=== PATIENT | male | born 1950 | race Caucasian/White ===

== ENCOUNTER 2019-08-17 19:22 | Inpatient (IN) | payer MEDICARE, OTHER, SELFPAY ==
[2019-08-17] VITALS (20 sets, daily range): BP systolic 119–167; BP diastolic 65–88; PULSE 85–107; RESP 12–32; TEMP 37.1; O2SAT 89–99; BMI 36.2
--- NOTE | 2019-08-17 19:27 | XR_ITS ---
WS: [id number] PORTABLE CHEST HISTORY: cp COMPARISON: None available. Pacer pads are present over the chest. Lung volumes are decreased. No consolidation or nodules. No pleural effusion or pneumothorax. Cardiac size: Normal. Mediastinum/Aorta: Normal mediastinum. No osseous abnormality seen. XR/XR chest 1V portable [id number] IMPRESSION: Decreased lung volumes. No acute findings.
--- NOTE | 2019-08-17 19:27 | ECG_ITS ---
Measurements Intervals [place] Rate: 100 P: 31 [place]: 243 QRS: -17 QRSD: 105 T: -15 QT: 342 QTc: 441 SINUS TACHYCARDIA WITH FIRST DEGREE AV BLOCK INCOMPLETE RIGHT BUNDLE BRANCH BLOCK [90+ ms QRS DURATION, TERMINAL R IN V1/ 40+ ms S IN I/aVL/V4/V5/V6] MODERATE VOLTAGE CRITERIA FOR LVH, CONSIDER NORMAL VARIANT [MEETS CRITERIA IN ONE OF: R(aVL), S(V1), R(V5), R(V5/V6)+S(V1)] INFERIOR MYOCARDIAL INFARCTION , OF INDETERMINATE AGE [40+ ms Q WAVE AND/OR ST/T ABN ABNORMALITY IN II/aVF] ANTEROLATERAL MYOCARDIAL INFARCTION , OF INDETERMINATE AGE [40+ ms Q WAVE IN I/ I/aVL/V3-V6] No previous ECG available for comparison Electronically Signed On 08-18-2019 13:04:18 CDT by Gerald Arriaga M.D. [id number]
--- NOTE | 2019-08-17 19:28 | ED_ITS ---
HPI - Syncope General: Chief Complaint: Syncope Stated Complaint: syncope Time Seen by Provider: 08/17/19 19:26 Source: patient and EMS Mode of arrival: EMS Limitations: no limitations History of Present Illness: HPI narrative: 69-year-old male who had a syncopal event at home. EMS arrived and has had 3-4 more syncopal events over the last 45 minutes. History sounds like he is having sinus pauses as EMS states that he gets bradycardic and then has a period of asystole that lasted 5 to 10 seconds and that is when he passes out. Patient denies any pain currently. He states he has had no pain MD complaint: loss of consciousness Onset (ago): hour(s) -: second(s) Prodromal symptoms: none Associated symptoms: Deny abdominal pain, fever(s), headache(s) or nausea Review of Systems Const: Denies: fever(s), chills, body aches or change in appetite Eyes: Denies: blurry vision or eye discomfort ENMT: Denies: throat pain or dental pain Card: Reports: irregular heart rhythm and syncope Resp: Denies: dyspnea GI: Denies: abdominal pain, nausea, vomiting or diarrhea : Denies: dysuria Musc: Denies: neck pain or back pain Skin/Breast: Denies: rash Neuro: Denies: headache(s) Psych: Denies: depression Alberto/Lymph: Denies: easy bruising All/Imm: Denies: urticaria PFSH ED PFSH: Social History Smoking and tobacco status: former smoker Physical Exam Const: COMMON NORMALS: no acute distress, patient oriented x3 and healthy appearing HENMT: COMMON NORMALS: normocephalic and atraumatic HEAD & SCALP: normocephalic and atraumatic Eye: COMMON NORMALS: Equal, round and reactive pupils present and EOMs intact bilaterally PUPIL: Yes Equal, round and reactive pupils present Neck/C-Spine: COMMON NORMALS: full ROM and supple Chest: COMMONS NORMALS: normal inspection of the chest and normal palpation of entire chest wall Resp: COMMON NORMALS: normal respiratory effort, No retractions, No use of accessory muscles and clear to auscultation bilaterally AUSCULTATION: clear to auscultation bilaterally Cardio: COMMON NORMALS: regular rate, regular rhythm and No murmurs present (Cardio) RATE: regular rate RHYTHM: regular rhythm GI: COMMON NORMALS: Normal to inspection, nondistended, normoactive bowel sounds present, Soft to palpation, non-tender and no masses PALPATION: Yes Soft to palpation Extremity: COMMON NORMALS: normal to inspection and full ROM Neuro: COMMON NORMALS: patient oriented x3, moves all extremities and no focal motor deficits Psych: COMMON NORMALS: mental status grossly normal, Normal thought process present and cooperative THOUGHT PROCESS: Normal thought process present Skin: COMMON NORMALS: no rashes or lesions noted and no wounds GENERAL SKIN EXAM: no rashes or lesions noted Course Vital Signs: Vital signs: Vital Signs Pulse Rate 96 08/17/19 21:52 Respiratory Rate 16 08/17/19 21:52 Blood Pressure 136/88 08/17/19 21:52 Pulse Oximetry 98 08/17/19 21:52 MDM - Syncope MDM Narrative: Medical decision making narrative: Patient presents here with syncopal events from a sinus pause. Patient has had 2 episodes here where he has a sinus pause for 20 to 30 seconds. I spoke to Dr. Arriaga who is going to place temporary pacemaker in the patient and will then admit to the ICU. Patient has been otherwise stable down here. Lab Data: Labs: Lab Results 08/17/19 08/17/19 08/17/19 Range/Units 19:35 19:35 19:35 WBC 12.4 H (4.0-10.0) 10^3/ uL RBC 5.25 (4.1-5.3) 10^6/u L Hgb 16.2 (11.7-16.6) g/dL Hct 49.3 (42.0-52.0) % MCV 93.9 (80-94) fL MCH 30.9 (28.0-34.0) pg MCHC 32.9 (30.0-36.0) g/dL RDW 12.2 (12.1-15.1) % Plt Count 183 (130-400) 10^3/c mm MPV 10.9 H (7.4-10.4) fL Neut % (Auto) 68.2 % Lymph % (Auto) 23.8 % Stark % (Auto) 6.0 % Eos % (Auto) 0.8 % Baso % (Auto) 0.6 % Neut # (Auto) 8.5 H (1.8-7.7) 10^3/u L Lymph # (Auto) 3.0 (0.8-4.8) 10^3/u L Stark # (Auto) 0.7 (0.2-0.9) 10^3/u L Eos # (Auto) 0.1 (0.0-0.8) 10^3/u L Baso # (Auto) 0.1 (0.0-0.1) 10^3/u L Nucleated RBC % (a uto) 0 % Nucleated RBCs # 0.0 /100WBC Sodium 139 (136-145) mmol/L Potassium 4.1 (3.5-5.1) mmol/L Chloride 99 (98-107) mmol/L Carbon Dioxide 23 (22-29) mmol/L Anion Gap 21.1 H (5-19) BUN 13 (8-23) mg/dL Creatinine 1.2 (0.7-1.2) mg/dL Glucose 161 H (65-115) mg/dL Calculated Osmolal ity 288 (285-295) mOsm/k g Calcium 10.2 (8.5-10.5) mg/dL Magnesium 2.1 (1.7-2.3) mg/dL Total Bilirubin 0.5 (0.15-1.2) mg/dL AST 22 (0-40) U/L ALT 20 (0-41) U/L Alkaline Phosphata se 75 (40-130) IU/L Troponin T Baselin e 27 H (0-15) ng/mL Total Protein 7.8 (6.6-8.7) g/dL Albumin 4.5 (3.5-5.2) g/dL Globulin 3.3 (1.3-4.6) g/dL Lipase 21 (13-60) U/L Critical Care Time Critical Care Time: Critical Care Time: Yes Total Critical Care Time: 36 Attestation: This case had a high probability of a clinically significant, sudden, or life threatening deterioration of this patient's condition which required my full and direct attention, intervention and personal management. Discharge Plan Discharge Patient Disposition: Admitted As Inpatient Clinical Impression: Sinus pause Syncope Qualifiers: Syncope type: unspecified Qualified Code(s): R55 - Syncope and collapse Condition: Stable Discharge Orders: Transfer Out of Facility (Order); Ordered 08/17/19 Ordered By: Sharif Conte Referrals: Sami Stevens MD [Primary Care Provider] - Interventions: ED Discharge Assessment Last Done: 08/17/19 21:52 ED Charges Last Done: 08/17/19 21:52 Coding Level of Care Code ED Medical Billing Specialist for Chg Fwd Exam Comprehensive
[2019-08-17] MEDS: sodium chloride 0.9% 1,000 ML 999 ML IV (19:40)
[2019-08-17] MEDS: ondansetron 2 mg/ML SDV 2 mL 4 MG IVP (19:41)
[2019-08-17 19:56] LABS: Basophils # 0.1 10^3/uL (0.0-0.1); Basophils % 0.6 %; Eosinophils # 0.1 10^3/uL (0.0-0.8); Eosinophils % 0.8 %; Hematocrit 49.3 % (42.0-52.0); Hemoglobin 16.2 g/dL (11.7-16.6); Lymphocytes % 23.8 %; Mean Corpuscular HGB Conc 32.9 g/dL (30.0-36.0); Mean Corpuscular Hemoglobin 30.9 pg (28.0-34.0); Mean Corpuscular Volume 93.9 fL (80-94); Mean Platelet Volume 10.9 fL (7.4-10.4); Monocytes # 0.7 10^3/uL (0.2-0.9); Neutrophils # 8.5 10^3/uL (1.8-7.7); Neutrophils % 68.2 %; Nucleated Red Blood Cells % 0 %; Platelet Count 183 10^3/cmm (130-400); Red Blood Count 5.25 10^6/uL (4.1-5.3); Red Cell Distribution Width 12.2 % (12.1-15.1); White Blood Count 12.4 10^3/uL (4.0-10.0)
[2019-08-17 20:07] LABS: Alanine Aminotransferase 20 U/L (0-41); Albumin Level 4.5 g/dL (3.5-5.2); Alkaline Phosphatase 75 IU/L (40-130); Anion Gap 21.1 (5-19); Aspartate Amino Transferase 22 U/L (0-40); Blood Urea Nitrogen 13 mg/dL (8-23); Calcium 10.2 mg/dL (8.5-10.5); Carbon Dioxide 23 mmol/L (22-29); Chloride 99 mmol/L (98-107); Globulin 3.3 g/dL (1.3-4.6); Glucose 161 mg/dL (65-115); Lipase 21 U/L (13-60); Magnesium 2.1 mg/dL (1.7-2.3); Osmolality Calculated 288 mOsm/kg (285-295); Potassium 4.1 mmol/L (3.5-5.1); Sodium 139 mmol/L (136-145); Total Bilirubin 0.5 mg/dL (0.15-1.2); Total Protein 7.8 g/dL (6.6-8.7)
[2019-08-17 20:09] LABS: Troponin(5th) Baseline 27 ng/mL (0-15)
--- NOTE | 2019-08-17 21:27 | ECG_ITS ---
Measurements Intervals [place] Rate: 92 P: 29 [place]: 241 QRS: -9 QRSD: 102 T: -3 QT: 348 QTc: 431 SINUS RHYTHM WITH FIRST DEGREE AV BLOCK INCOMPLETE RIGHT BUNDLE BRANCH BLOCK [90+ ms QRS DURATION, TERMINAL R IN V1/V2, 40+ ms S IN I/aVL/V4/V5/V6] POSSIBLE ANTERIOR MYOCARDIAL INFARCTION , PROBABLY OLD [30 ms Q WAVE IN V3/V4, OR R < 0.2 mV IN V4] INFERIOR MYOCARDIAL INFARCTION , OF INDETERMINATE AGE [40+ ms Q WAVE AND/OR ST/T ABNORMALITY IN II/aVF] No previous ECG available for comparison Electronically Signed On 08-18-2019 13:07:27 CDT by Gerald Arriaga M.D. [id number]
--- NOTE | 2019-08-17 21:54 | XACV_ITS ---
Ht: 180 cm Wt: 118 kg BSA: 2.47 m2 Gender: Male : 1950 Exam Priority: Routine Procedure(s): Procedure Description: Diagnostic procedure Procedure Description: Miscellaneous Procedure Description: Temporary Pacemaker Insertion Diagnostic Cath Status: Emergency Diagnostic Findings Patient came to the emergency room with syncope. Having 30 to 45 seconds of ventricular standstill with loss of consciousness. Patient underwent temporary transvenous pacemaker placement via the right common femoral vein without incident. Backup rate set at 70 with an MA of 5. Interventional RX Recommendation: other cardiac therapy w/o CABG/PCI Diagnostic RX Recommendation: other cardiac therapy w/o CABG/PCI Clinical Evaluation EBL: 5mL-10mL Procedural Details Procedure Consent Obtained. Pre-Procedure Time Out. Identified patient by full name and date of as verbalized by the patient/guarantor. Does the consent match the physician's order: Yes. Accurate & Complete Informed Consent: Yes. Inpatient/Outpatient History & Physical on Chart: Yes. If H&P is completed, is and addenduem needed: Yes; If yes, is the addendum complete: N/A. Visualize and Verify Site with Patient/Guarantor: N/A. Relevant Radiology Images available: N/A. The risks, benefits, and alternatives of sedation and/or procedure were discussed by physician. The patient agrees to continue. Procedure started. Correct patient, site and procedure confirmed by cath team. PERRLA. Strong, equal hand insurance consultant bilaterally. Lungs clear x 5 lobes. IV Site on Arrival: 20 gauge in the left anticubital. A 20 gauge IV was started in the left anticubital using aseptic technique. Oxygen started at 2liters/min via nasal canula. Physician notified. Baseline sample Acquired. HR: 95 BPM. Patient's family unavailable. Equipment: 6F - Femoral. Physician arrived. Physician scrubbed in. Immediate Pre-Procedure Time Out. Correct Patient: Yes; Correct Procedure: Yes; Correct Site: Yes; Correct Patient Position: Yes; Correct Supplies: Yes; Dried Flammable Prep: Yes; Blood Products Available: Yes;. bilateral groins was prepped with chloroprep then draped in the usual sterile fashion. Lidocaine 1% infiltrated to the right groin. Venous access obtained. Temporary pacer inserted. settings done. temporary sutured in and sterile dressing applied per physician protocol. Post Procedure: Pulses reassessed and unchanged. No VTE prophylaxis required. Total IV fluids: 50 mL. Fluoro: 13:07. Post-op diagnosis: EKG pauses. Complications: none. Estimated blood loss: 5mL-10mL. Procedure completed. Patient transferred by bed to ICU. Site: Right Femoral vein Sheath Size: 6 Fr Hemostasis Success: Unsuccessful I, the attending physician, have reviewed and verified all procedure medications. Yes, all medications given per verbal order Report Signatures Finalized by:Dr. Gerald Arriaga MD on 08/17/2019 10:36:05 PM
--- NOTE | 2019-08-17 21:55 | PC.NURSE ---
EKG done at 2152 and shown to ER doctor
[2019-08-17 22:16] LABS: Troponin 5 2HR 29.75 ng/mL (0-15); Troponin 5 2HR Delta 2.75 ABS# (0-10)
--- NOTE | 2019-08-17 22:29 | PM.HP ---
Providers/Chief Complaint Admitting Physician: Corina Primary Care Provider: Sami Stevens MD Chief Complaint: syncope History of Present Illness Bolivar Lau is a 69 year old male who is a poor historian. He passed out at the dinner table this evening. He has had several episodes since. Came to the emergency room where he is having 30 to 45 seconds circular standstill with loss of consciousness. He denies any previous cardiac history. He does not know much about his medical history stating that he has high blood pressure. Does not know what medications he takes. Review of Systems General: Reports: ROS unobtainable due to medical condition Medications/Allergies Home Medications Medication Instructions Recorded Confirmed Last Taken Type amlodipine 10 mg PO DAILY 08/17/19 08/17/19 08/17/19 History ferrous sulfate See Rx Instructions .ROUTE .COMPLEX 08/17/19 08/17/19 08/17/19 History hydralazine See Rx Instructions .ROUTE .COMPLEX 08/17/19 08/17/19 08/17/19 History lisinopril 10 mg PO DAILY 08/17/19 08/17/19 08/17/19 History Allergies Allergy/AdvReac Type Severity Reaction Status Date / Time No Known Allergies Allergy Verified 08/17/19 19:31 PFSH Acute PFSH: Medical History (Updated 08/17/19 @ 22:31 by Gerald Arriaga MD) Essential hypertension Obesity Sleep apnea Social History Smoking and tobacco status: former smoker Vitals/I&O/Wt Last Vital Signs Pulse 96 08/17/19 21:52 Resp 16 08/17/19 21:52 BP 136/88 08/17/19 21:52 Pulse Ox 98 08/17/19 21:52 Weight last 48 hrs Weight 260 lb Physical Exam Narrative: EXAM NARRATIVE: GENERAL: In general obese, dirty and disheveled HEENT: Exam within normal limits. NECK: Supple without jugular vein distention. The carotid upstroke is normal without bruits. BACK: Exam normal. LUNGS: Clear. HEART: Regular rate and rhythm. ABDOMEN: Benign without organomegaly or tenderness. EXTREMITIES: No edema. NEUROLOGIC: Exam normal. SKIN: Unremarkable. Data : 08/17/19 19:35 08/17/19 19:35 A&P Assessment and plan (1) Sinus pause: Status: Acute (2) Syncope: Status: Acute Qualifiers: Syncope type: unspecified Qualified Code(s): R55 - Syncope and collapse (3) Essential hypertension: Status: Acute (4) Obesity: Status: Acute (5) Sleep apnea: Status: Acute Additional A&P Information Patient needs a temporary pacemaker. He is symptomatic with the episodes of ventricular standstill. These last up to 45 seconds and he becomes unconscious. Pacemaker will be performed now. He will then need a permanent pacemaker. Attestations Medical Necessity Statement*: Patient will need to stay in the hospital past 2 midnights for management of ventricular standstill. Coding Level of Care Code New Pt Acute Dye House Supervisor for Chg Fwd Patient Type New History Comprehensive Exam Comprehensive Medical Decision Making High Complexity Diagnoses Sinus pause I45.5 Syncope R55 Syncope type: unspecified Essential hypertension I10 Obesity E66.9 Sleep apnea G47.30
--- NOTE | 2019-08-17 23:22 | XACV_ITS ---
Ht: 180 cm Wt: 118 kg BSA: 2.47 m2 Gender: Male : 1950 Exam Priority: Routine Procedure(s): Procedure Description: Diagnostic procedure Procedure Description: Miscellaneous Procedure Description: Temporary Pacemaker Insertion Diagnostic Cath Status: Emergency Diagnostic Findings Temporary pacemaker was placed 2 hours ago for ventricular standstill and loss of consciousness. Shortly after arriving at the ICU the patient had another episode. The pacemaker clearly had dislodged. The nurses then did CPR on the patient further dislodging the device. He is brought back for purposes of repositioning. The old pacemaker was removed and a new wire placed. We will take him back to the ICU with the pacemaker in the asynchronous mode at a rate of 110 so as to ensure that it is still functioning when he gets in bed in the ICU. Settings are the same however now the rate is 110 bpm and the asynchronous mode with an MA of 5. Conclusions Repositioning of a dislodged temporary pacemaker wire. Interventional RX Recommendation: other cardiac therapy w/o CABG/PCI Diagnostic RX Recommendation: other cardiac therapy w/o CABG/PCI Procedural Details Procedure Consent Obtained. Pre-Procedure Time Out. Identified patient by full name and date of as verbalized by the patient/guarantor. Does the consent match the physician's order: Yes. Accurate & Complete Informed Consent: Yes. Inpatient/Outpatient History & Physical on Chart: Yes. If H&P is completed, is and addenduem needed: Yes; If yes, is the addendum complete: Yes. Visualize and Verify Site with Patient/Guarantor: N/A. Relevant Radiology Images available: N/A. The risks, benefits, and alternatives of sedation and/or procedure were discussed by physician. The patient agrees to continue. Procedure started. Correct patient, site and procedure confirmed by cath team. PERRLA. Strong, equal hand custodial manager bilaterally. Lungs clear x 5 lobes. IV Site on Arrival: 20 gauge in the left anticubital. Oxygen started at 2liters/min via nasal canula. Physician notified. Baseline sample Acquired. HR: 0 BPM. Patient's family unavailable. Equipment: 6F - Femoral. Physician arrived. Physician scrubbed in. Immediate Pre-Procedure Time Out. Correct Patient: Yes; Correct Procedure: Yes; Correct Site: Yes; Correct Patient Position: Yes; Correct Supplies: Yes; Dried Flammable Prep: Yes; Blood Products Available: Yes;. physician confirming temp pacer generator settings. physician repositioning pacer lead. old lead out new lead inserted. generator attached. lead sutured in and sterile dressing applied. Fluoro: 10:00. Complications: none. Procedure completed. Patient transferred by bed to ICU. I, the attending physician, have reviewed and verified all procedure medications. No Report Signatures Finalized by:Dr. Gerald Arriaga MD on 08/18/2019 12:03:18 AM
--- NOTE | 2019-08-17 23:32 | PM.EVENT ---
Event Note Event Note: Shortly after arriving to the ICU after the temporary pacemaker was placed, patient apparently had another episode of ventricular standstill and syncope. The ICU nurses performed CPR. Obviously somehow the pacemaker became dislodged then did not function. The CPR probably dislodged it permanently. We will need to take him back to the catheterization laboratory and reposition the pacemaker.
[2019-08-18] VITALS (37 sets, daily range): BP systolic 106–194; BP diastolic 59–114; PULSE 68–101; RESP 11–24; O2SAT 84–99
--- NOTE | 2019-08-18 01:17 | PC.NURSE ---
received patient from microbiology lab technician via bed at 2256. patient awake alert and oriented x 4. patient has temporary pacer in right groin and is taped from groin to ankle. pacer set at 70 . . after getting monitor hooked up to patient and assessing , at 2303 patients eyes rolled back into head cardiac went asystole with deep purple tinge to face. patient asystole for 25 seconds and pacer failed to fire 6 pushes of CPR on chest patient regained rhythm. Patient knows where he is but does not know what happened. Dr. Arriaga called and told of patients pacer not firing, microbiology lab technician on way back in to return to microbiology lab technician, nursing rig supervisor called. (Mckenzie Muniz), At 2330 patient taken bath to microbiology lab technician per microbiology lab technician staff. patient returned to floor at 0010, Dr. Arriaga at bedside.patient awake alert and oriented hr 100 vs wnl
--- NOTE | 2019-08-18 01:27 | ECG_ITS ---
Measurements Intervals [place] Rate: 100 P: 99 [place]: 247 QRS: -13 QRSD: 106 T: -11 QT: 336 QTc: 434 SINUS TACHYCARDIA WITH FIRST DEGREE AV BLOCK POSSIBLE ANTERIOR MYOCARDIAL INFARCTION [30 ms Q WAVE IN V3/V4, OR R < 0.2 mV IN V4], OF INDETERMINATE AGE INFERIOR MYOCARDIAL INFARCTION [40+ ms Q WAVE AND/OR ST/T ABNORMALITY IN II/aVF II/aVF], OF OF INDETERMINATE AGE INTERPRETATION BASED ON A DEFAULT AGE OF 40 YEARS No previous ECG available for comparison Electronically Signed On 08-18-2019 13:08:44 CDT by Gerald Arriaga M.D. [id number]
[2019-08-18 01:31] LABS: Troponin 5 6HR 34.55 ng/mL (0-15); Troponin 5 6HR Delta 7.55 ng/L (0-12)
--- NOTE | 2019-08-18 02:00 | PC.NURSE ---
patient voided per urinal right leg remains straight with 6 khmer cath intact. patient has talked to on phone and no pain at this time. No ectopy or pauses noted. 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 Also to inform us that patient had aneurism somewhere in head ..
--- NOTE | 2019-08-18 02:08 | PC.NURSE ---
Spoke with Dr. Schrader re: Lovenox has been ordered for patient, with recent brain bleed in april, Dr. Schrader wanted to hold lovenox for now. records have been requested from [facility].
[2019-08-18 05:57] LABS: Anion Gap 17.4 (5-19); Blood Urea Nitrogen 14 mg/dL (8-23); Calcium 9.3 mg/dL (8.5-10.5); Carbon Dioxide 26 mmol/L (22-29); Chloride 102 mmol/L (98-107); Glucose 120 mg/dL (65-115); Osmolality Calculated 289 mOsm/kg (285-295); Potassium 4.4 mmol/L (3.5-5.1); Sodium 141 mmol/L (136-145)
[2019-08-18 06:02] LABS: Basophils % 0.3 %; Hematocrit 46.6 % (42.0-52.0); Hemoglobin 15.2 g/dL (11.7-16.6); Lymphocytes # 1.8 10^3/uL (0.8-4.8); Lymphocytes % 14.2 %; Mean Corpuscular HGB Conc 32.6 g/dL (30.0-36.0); Mean Corpuscular Hemoglobin 29.5 pg (28.0-34.0); Mean Corpuscular Volume 90.5 fL (80-94); Monocytes # 0.8 10^3/uL (0.2-0.9); Monocytes % 6.7 %; Neutrophils # 9.8 10^3/uL (1.8-7.7); Neutrophils % 78.6 %; Nucleated Red Blood Cells % 0 %; Platelet Count 196 10^3/cmm (130-400); Red Blood Count 5.15 10^6/uL (4.1-5.3); White Blood Count 12.5 10^3/uL (4.0-10.0)
--- NOTE | 2019-08-18 07:00 | P.PN_ITS ---
Subjective Subjective: Interval history: Pacemaker had to be replaced last night because it became dislodged. He has had no further problems overnight. He maintained sinus rhythm this morning. The nurse told me that his called in and said that he had had some kind of brain bleed in the past. I do not have any of the details regarding this. She also mentioned an aneurysm in the head. Apparently the patient suffers from some memory loss as a result of this. When I asked him about this this morning he does not have any recollection about it at all. Glucoses have been mildly elevated. His baseline troponin was 27 with 2-hour troponin 29.75 and 6-hour troponin 34.5 Medications: Reviewed: Yes Vitals/I&O/Wt Last Vital Signs Temp 98.8 F 08/17/19 23:00 Pulse 100 08/18/19 00:30 Resp 14 08/18/19 00:30 BP 130/80 08/18/19 00:30 Pulse Ox 93 08/18/19 01:12 08/17/19 08/18/19 08/18/19 22:59 06:59 14:59 Intake Total 120 / 120 Output Total 850 / 850 Balance -730 / -730 Weight last 48 hrs Weight 260 lb Physical Exam Narrative: EXAM NARRATIVE: GENERAL: General he looks comfortable HEENT: Exam within normal limits. NECK: Supple without jugular vein distention. The carotid upstroke is normal without bruits. BACK: Exam normal. LUNGS: Clear. HEART: Regular rate and rhythm. ABDOMEN: Benign without organomegaly or tenderness. EXTREMITIES: No edema. NEUROLOGIC: Exam normal. SKIN: Unremarkable. Data : 08/18/19 04:45 08/18/19 04:45 A&P Assessment and plan (1) Sleep apnea: Status: Acute (2) Obesity: Status: Acute (3) Essential hypertension: Status: Acute (4) Sinus pause: Status: Acute (5) Syncope: Status: Acute Qualifiers: Syncope type: unspecified Qualified Code(s): R55 - Syncope and collapse (6) Glucose intolerance: Status: Acute Attestations 2 Medical Necessity Statement*: Needs continued hospitalization for management of ventricular standstill with syncope and loss of consciousness. Coding Level of Care Code Established Pt Acute Planning Official for [facility] Fwd Patient Type Established History Comprehensive Exam Comprehensive Medical Decision Making High Complexity Diagnoses Sleep apnea G47.30 Obesity E66.9 Essential hypertension I10 Sinus pause I45.5 Syncope R55 Syncope type: unspecified Glucose intolerance E74.39
--- NOTE | 2019-08-18 07:08 | USCV_ITS ---
Bolivar Lau Age: 69 Gender: M : 1950 Exam Date: 08/18/2019 07:56 Ordering Phys: Gerald Arriaga MD ([email or web address]) Technologist: Gladis Marques Exam Location: [facility] [place] Indication: Ventricular standstill BP: 124 / 93 HR: 99 Rhythm: Sinus Technical Quality: Technically difficult study MEASUREMENTS (Male / Female) Normal Values 2D ECHO LV Diastolic Diameter PLAX 3.4 cm 4.2 - 5.9 / 3.9 - 5.3 cm LV Systolic Diameter PLAX 2.1 cm LV Chamber Size 3.8 cm IVS Diastolic Thickness 1.0 cm 0.6 - 1.0 / 0.6 - 0.9 cm IVS Systolic Thickness 1.7 cm LVPW Diastolic Thickness 0.9 cm 0.6 - 1.0 / 0.6 - 0.9 cm LVPW Systolic Thickness 1.6 cm RV Chamber Size 2.6 cm LVOT Diameter 2.0 cm LV Ejection Fraction 2D Teich 68.8 % LV Ejection Fraction MOD 2C 56.0 % LV Ejection Fraction 2C AL 58.2 % LA Diameter 5.7 cm LA Width 3.1 cm LA Height 4.0 cm RA Width 5.0 cm RA Height 2.9 cm Aorta at Sinotubular Diameter 3.1 cm M-MODE LV Diastolic Diameter MM 5.5 cm 4.2 - 5.9 / 3.9 - 5.3 cm LV Systolic Diameter MM 3.0 cm LV Ejection Fraction MM Teich 76.8 % IVS Diastolic Thickness MM 0.9 cm 0.6 - 1.0 / 0.6 - 0.9 cm IVS Systolic Thickness MM 1.4 cm LVPW Diastolic Thickness MM 1.3 cm 0.6 - 1.0 / 0.6 - 0.9 cm LVPW Systolic Thickness MM 1.6 cm RV Diastolic Diameter MM 1.6 cm Aortic Annulus Diameter 3.4 cm LA Ao Ratio MM 1.7 MV E Point Septal Separation 0.7 cm DOPPLER AV Peak Velocity 182.0 cm/s LVOT Peak Velocity 129.0 cm/s AV Area Cont Eq vti 2.4 cm squared AV Area Cont Eq pk 2.2 cm squared MV Area PHT 4.9 cm squared MV E' Velocity 11.0 cm/s Mitral E to MV E' Ratio 9.2 Mitral E to LV E' Lateral Ratio 10.5 Mitral E to LV E' Septal Ratio 8.2 TR Peak Velocity 160.3 cm/s TR Peak Gradient 10.3 mmHg TR Mean Velocity 107.8 cm/s TR Mean Gradient 5.6 mmHg TR Velocity Time Integral 32.8 cm TV Peak E Velocity 83.0 cm/s Right Atrial Pressure 3.0 mmHg Pulmonary Artery Systolic Pressu 13.3 mmHg FINDINGS Left Ventricle Normal left ventricular size, systolic function and wall thickness, with no regional wall motion abnormalities. Grade II/IV diastolic dysfunction, moderately elevated filling pressures. Ejection fraction is approximately 60%. Right Ventricle Normal right ventricular size and systolic function. Normal right ventricular systolic pressure. Right Atrium Mildly increased right atrial size. Left Atrium Mildly increased left atrial size. Mitral Valve Structurally normal mitral valve without significant stenosis or prolapse. There is no mitral regurgitation. Aortic Valve Structurally normal aortic valve without significant sclerosis or stenosis. There is no aortic regurgitation. Tricuspid Valve Structurally normal tricuspid valve. Trace tricuspid valve regurgitation. Pulmonic Valve Pulmonic valve not well visualized. Pericardium Normal pericardium without effusion. Aorta Normal ascending aorta dimension. CONCLUSIONS Normal left ventricular size, systolic function and wall thickness, with no regional wall motion abnormalities. Grade II/IV diastolic dysfunction, moderately elevated filling pressures. Ejection fraction is approximately 60%. Mildly increased right atrial size. Mildly increased left atrial size. There are no prior echocardiogram studies to compare. Dr. Gerald Arriaga MD (Electronically Signed) Final Date: 18 Aug 2019 09:31 S
[2019-08-18] MEDS: amlodipine 10 mg Tablet PO (09:05)
--- NOTE | 2019-08-18 09:16 | P.CONIM_ITS ---
Providers/Reason For Consult Consulting Physican/Specialty*: MELANIE Kothari MD/cardiology Reason for Consult*: For a permanent pacemaker implantation Attending Physician: Gerald Arriaga MD Primary Care Provider: Sami Stevens MD History of Present Illness History of Present Illness Bolivar Lau is a 69 year old male with a history of hypertension,? Dyslipidemia, is admitted to the hospital with recurrent episodes of syncope. He was found to have prolonged pauses on telemetry. He had a temporary pacemaker insertion. I was consulted for the permanent pacemaker implantation. Patient apparently has been in his baseline state of health up until last night when while having the dinner, had a passing out spell. He was brought to the hospital by ambulance. On the way to the hospital, he had couple more episodes of passing out spells in the ambulance. He was found to have prolonged pauses of more than 10 seconds. He had a temporary pacemaker insertion at the time of admission. While being in the ICU, the temporary pacer was found to be nonfunctioning. Patient had another episode of prolonged pause of almost 40 seconds. He had a brief CPR. The temporary pacer wire was repositioned. Currently seems to be doing okay. His telemetry shows sinus rhythm. He is on demand pacing. Denies any chest pain or shortness of breath. No fever, chills or cough. No recent infections. He has a history of intracerebral bleed for which he was admitted to [facility] in [place]. Details are not available. He has no history for any bleeding diathesis. Review of Systems Narrative: CONSTITUTIONAL: No fever or chills. EYES: No blurring of vision or other visual disturbances lately. ENT: No hoarseness of voice, auditory disturbances or sore throat. CARDIOVASCULAR: As mentioned above. RESPIRATORY: No significant cough. GASTROINTESTINAL: No hematemesis or melena. GENITOURINARY: No dysuria or hematuria. INTEGUMENTARY: No skin rashes or history of skin cancer. NEURO:? History of cerebral bleed PSYCHIATRIC: No history of psychosis or major depression. HEMATOLOGIC: No bleeding disorders or significant anemia. ENDOCRINE: No history of polyuria or polydipsia. MUSCULOSKELETAL: No recent joint pain or swelling. ALLERGY/IMMUNOLOGY: As mentioned above. Meds/Allergies Home Medications and Allergies Home Medications Medication Instructions Recorded Confirmed Last Taken Type amlodipine 10 mg PO DAILY 08/17/19 08/17/1920 History ferrous sulfate See Rx Instructions .ROUTE .COMPLEX 08/17/19 08/17/19 08/17/19 History hydralazine See Rx Instructions .ROUTE .COMPLEX 08/17/19 08/17/19 08/17/19 History lisinopril 10 mg PO DAILY 08/17/19 08/17/19 08/17/19 History Allergies Allergy/AdvReac Type Severity Reaction Status Date / Time No Known Allergies Allergy Verified 08/17/19 19:31 Current Medications Current Medications Generic Name Dose Route Start Last Admin Trade Name Freq PRN Reason Stop Dose Admin Amlodipine Besylate 10 mg 08/18/19 09:00 08/18/19 09:05 Norvasc PO 10 mg DAILY TREVIN Administration Enoxaparin Sodium 40 mg 08/18/19 00:22 08/18/19 05:32 Lovenox SUBCUT Not Given Q24H TREVIN PFSH Acute PFSH: Medical History (Updated 08/18/19 @ 09:32 by Tyler Kothari MD) Benign essential hypertension with target blood pressure below 140/90 Brain bleed Essential hypertension Glucose intolerance Obesity Recurrent syncope Sinus node dysfunction Sleep apnea Social History Smoking and tobacco status: former smoker Vitals/I&O/Wt Last Vital Signs Temp 98.8 F 08/17/19 23:00 Pulse 96 08/18/19 09:08 Resp 14 08/18/19 00:30 BP 130/80 08/18/19 00:30 Pulse Ox 93 08/18/19 09:08 08/17/19 08/18/19 08/18/19 22:59 06:59 14:59 Intake Total 120 / 120 Output Total 850 / 850 Balance -730 / -730 Weight last 48 hrs Weight 260 lb Physical Exam Narrative: EXAM NARRATIVE: GENERAL: The patient is alert and oriented times three. Not in any acute distress. HEENT: No significant pallor, icterus or lymphadenopathy. NECK: Trachea appears to be central. No masses noted. No JVD or thyromegaly appreciated. No carotid bruit. RESPIRATORY: Chest is symmetrical. No intercostals muscle retraction or any accessory muscle activation. There is no chest wall tenderness. Breath sounds are heard bilaterally. No rales or rhonchi heard. No evidence of any consolidation. BREASTS: Deferred. HEART: The PMI is in the 5th left intercostals space just inside the midclavicular line. No palpable precordial events. S1 and S2 are normal. No S3 or S4 heard. No pericardial rub or any click heard. ABDOMEN: No vessel pulsations or distention. No tenderness. No organomegaly appreciated. No abdominal bruit. Bowel sounds are normally heard. : Deferred. RECTAL: Deferred. LYMPHATIC: No lymphadenopathy noted in the neck or groin. EXTREMITIES: No edema or cyanosis. No clubbing. The pulses are symmetrical bilaterally. MUSCULOSKELETAL: No acute joint deformities or swelling SKIN: There are no significant scars or skin rash noted. NEUROPSYCHIATRIC: The patient is alert and oriented x3. Appears to be in a good mood. The higher functions are grossly within normal limits except for poor recollection of past events. No tremors or rigidity noted. Data Labs: Other Labs: Abnormal lab results 08/17/19 08/17/19 08/17/19 Range/Units 19:35 19:35 19:35 WBC 12.4 H (4.0-10.0) 10^3/ uL RDW (12.1-15.1) % MPV 10.9 H (7.4-10.4) fL Neut # (Auto) 8.5 H (1.8-7.7) 10^3/u L Anion Gap 21.1 H (5-19) Glucose 161 H (65-115) mg/dL Troponin I 6 Hour (0-15) ng/mL Troponin T Baselin e 27 H (0-15) ng/mL Troponin T 120 Min [place] (0-15) ng/mL 08/17/19 08/18/19 08/18/19 Range/Units 21:30 01:13 04:45 WBC 12.5 H (4.0-10.0) 10^3/ uL RDW 12.0 L (12.1-15.1) % MPV 11.0 H (7.4-10.4) fL Neut # (Auto) 9.8 H (1.8-7.7) 10^3/u L Anion Gap (5-19) Glucose (65-115) mg/dL Troponin I 6 Hour 34.55 H (0-15) ng/mL Troponin T Baselin e (0-15) ng/mL Troponin T 120 Min [place] 29.75 H (0-15) ng/mL 05/15/20 Range/Units 04:45 WBC (4.0-10.0) 10^3/ uL RDW (12.1-15.1) % MPV (7.4-10.4) fL Neut # (Auto) (1.8-7.7) 10^3/u L Anion Gap (5-19) Glucose 120 H (65-115) mg/dL Troponin I 6 Hour (0-15) ng/mL Troponin T Baselin e (0-15) ng/mL Troponin T 120 Min [place] (0-15) ng/mL Imaging^: CXR: My impression: Normal cardiac silhouette. No acute lung infiltrates. Echo: My impression: Normal LV size and ejection fraction. No gross wall motion abnormalities. No significant pericardial effusion. No significant valvular lesions. Mild biatrial enlargement EKG^: EKG 1: My Interpretation: The EKG showed a sinus rhythm with the first-degree AV block. Features of old anterior wall myocardial infarction. Possible old inferior myocardial infarction. No acute ST-T changes. A&P Assessment and plan (1) Recurrent syncope: Patient syncope was found to be associated with prolonged pauses. I agree with a permanent pacer implantation, for further management of his condition. As of now the patient has no contraindication. He has a slightly elevated white cell count, which could be related to the recurrent episodes of passing out spell/acute reactant. He has no evidence of infection. He is afebrile. I may repeat his CBC. Will do a UA. Also will do an INR. After reviewing the above, further decisions will be made. Status: Acute (2) Sinus node dysfunction: As mentioned above. Patient seems to have severe sinus prudencio dysfunction causing prolonged pauses. The echocardiogram was reviewed. No significant as stenotic or regurgitant lesions. Status: Acute (3) Benign essential hypertension with target blood pressure below 140/90: Currently the blood pressure is stage II Status: Acute Additional A&P Information I discussed with the patient detail about the permanent pacer implantation.The risk of bleeding, hematoma, vascular injury, pneumothorax, infection, renal failure and other concomitant complications were explained in detail. The patient understood this well and consented to proceed. We will go ahead and make the arrangements to have it done as soon as possible. Consult Attestations Medical Necessity Statement: Patient requires continued hospital stay for close monitoring and further management Coding Level of Care Code Acute Systems Integration Advisor for Chg Fwd Diagnoses Recurrent syncope R55 Sinus node dysfunction I49.5 Benign essential hypertension with target blood pressure below 140/90 I10
[2019-08-18 10:51] LABS: Basophils % 0.3 %; Hematocrit 45.8 % (42.0-52.0); Hemoglobin 15.3 g/dL (11.7-16.6); Lymphocytes # 2.1 10^3/uL (0.8-4.8); Lymphocytes % 19.7 %; Mean Corpuscular HGB Conc 33.4 g/dL (30.0-36.0); Mean Corpuscular Hemoglobin 29.9 pg (28.0-34.0); Mean Corpuscular Volume 89.6 fL (80-94); Mean Platelet Volume 10.5 fL (7.4-10.4); Monocytes # 0.8 10^3/uL (0.2-0.9); Neutrophils # 7.9 10^3/uL (1.8-7.7); Neutrophils % 72.7 %; Nucleated Red Blood Cells % 0 %; Platelet Count 174 10^3/cmm (130-400); Red Blood Count 5.11 10^6/uL (4.1-5.3); White Blood Count 10.8 10^3/uL (4.0-10.0)
--- NOTE | 2019-08-18 11:23 | W.PM.OPSUD ---
Surgery/Procedure H&P Update DATE OF PROCEDURE: August 18, 2019 DATE H&P PERFORMED: 08/18/19 PATIENT REASSESSED PRIOR TO SEDATION, WITH NO CHANGE NOTED: Yes PHYSICAL EXAM: alert, oriented x 3, clear to auscultation bilaterally and regular rate & rhythm AIRWAY EVAL/ANESTHESIA PLAN: ASA II, Monitored Anesthesia, Local Anesthesia, Risks, benefits & alternatives of sedation and/or procedure discussed and Patient agrees to continue as planned
--- NOTE | 2019-08-18 11:36 | PM.OP ---
Operative Report Date of procedure: August 18, 2019 Pre-op Diagnosis: Syncope/sinus node dysfunction Post-op diagnosis: same Procedure: LOCATION: [facility]ulatory [facility] PREOPERATIVE DIAGNOSES: Syncope/sinus node dysfunction. POSTOPERATIVE DIAGNOSES: Same. COMPLICATIONS: None. ESTIMATED BLOOD LOSS: Around 5 milliliters. BRIEF HISTORY: This is a 69-year-old white male, is admitted to hospital with recurrent episodes of syncope. He was found to have prolonged pauses on the telemetry. He had asystole of more than 40 seconds, requiring brief CPR. He had a temporary pacer insertion of the time of admission. For further management of his condition, a permanent pacemaker implantation was requested . A dual chamber permanent pacemaker implantation was recommended for further management of her condition. The procedure was explained to the patient in detail with the risks and benefits. The risks of bleeding, hematoma, vascular injury, infection, pneumothorax, myocardial perforation and other concomitant complications were explained in detail, which the patient understood well and consented to proceed. PROCEDURE DESCRIPTION: The patient was brought to the Cardiac Catheterization Lab. The left and the right side of the neck and the subclavian area were cleaned and draped in a sterile fashion. 1% Xylocaine was used as the local anesthetic agent. A left subclavian venous access was obtained using a micropuncture needle system. Under venographic guidance, the patient was injected with 20 milliliters of Omnipaque through the left antecubital vein. A two-inch long incision was made 2.0 centimeters below the midclavicular region. By sharp and blunt dissection, a pacemaker pocket was made. A second venous access was obtained using another micropuncture needle system. Over the first guidewire, a 7-German venous sheath with dilator was advanced. The venous dilator and the guidewire were taken out. A screw-in ventricular lead was advanced through the venous sheath and was positioned towards the right ventricle. Under fluoroscopy guidance, the ventricular lead was positioned toward the right ventricular apex. Good pacing and sensing thresholds were obtained. The lead was secured to the endocardium by advancing the helix. The stability of the lead was tested by gentle twisting movements and also by asking the patient to take some deep breaths and cough. The venous sheath was peeled off, at this time. The lead was secured to the pectoralis fascia, by suturing with 1-0 Surgilon. Over the second guidewire, another 7-German venous sheath with dilator was advanced. The dilator and the guidewire were taken out. Under fluoroscopy guidance, an atrial lead (Medtronic), was advanced and positioned toward the right atrium. The lead was positioned in the right atrial appendage. Good pacing and sensing thresholds were obtained. The lead was secured to the endocardium by advancing the helix. Stability of the lead was tested by gentle twisting movements and also by asking the patient to take some deep breaths and cough. The venous sheath was peeled off, at this time. The lead was secured to the pectoralis fascia by suturing with 0-Surgilon. The pacemaker pocket was copiously irrigated with vancomycin solution. Complete hemostasis was achieved. Sponge counts were confirmed. The leads were attached to a Medtronic generator. The leads were positioned behind the generator and the generator was attached to the pectoralis fascia by suturing with 0-Surgilon. The pocket was closed in layers. Skin was approximated using 4-0 Vicryl. IMPLANTED DEVICES: ATRIAL LEAD: Model number: [id number] Serial number: [id number] Make: Medtronic VENTRICULAR LEAD: Model number: 50 76?58 Serial number: [id number] Make: Medtronic GENERATOR Brand: Anamika XT DR MRI Miriaman Model number: [id number] Serial number: [id number] Make: Medtronic IMPLANTATION DATA: With the pacing system analyzer, the R wave sensing was 7.4 millivolts with a lead impedance of 730 and a pacing threshold was 0.4 volts at 0.5 milliseconds. In the atrium, the sensing was 3.0 millivolts with a lead impedance of 632 ohms and a pacing threshold was 0.5 volts at 0.5 milliseconds. Through the device, the R-wave sensing was 10.0 millivolts with a lead impedance of 684 and a pacing threshold was 0.5 volts at 0.4 milliseconds. The atrial sensing was 2.2 millivolts with a lead impedance of 551 ohms and a pacing threshold of 0.5 volts at 0.4 milliseconds. The pacemaker was set for AAIR/DDDR mode with upper rate of 130 and a lower rate of 60. A pressure dressing was applied over the pacemaker site. The patient was transferred to the Medical Floor in stable condition. A chest x-ray was ordered to confirm the lead position and also to rule out any pneumothorax.
--- NOTE | 2019-08-18 15:32 | XRR_ITS ---
PROCEDURE INFORMATION: Exam: XR Chest, 1 View Exam date and time: 08/18/2019 3:46 PM Age: 69 years old Clinical indication: Screening exam; Pre-operative exam; Other: Pacemaker lead placement; Prior surgery; Surgery date: Post-operative (0-2 days); Surgery type: Pacemaker placement; Additional info: Verify lead placement of pacemaker TECHNIQUE: Imaging protocol: XR of the chest Views: 1 view. COMPARISON: CR XR chest 1V portable [id number] 08/17/2019 7:30 PM FINDINGS: Tubes, catheters and devices: Interval placement of dual lead pacemaker in the left chest wall. Leads are within the right atrium and right ventricle on this single frontal view. Lungs: No consolidation. Pleural space: No pneumothorax. Heart/Mediastinum: Heart size is at the upper limits of normal. Diaphragm: The right hemidiaphragm remains mildly elevated. Bones/joints: Unremarkable. XR/XR chest 1V portable [id number] IMPRESSION: 1. Interval placement of dual lead pacemaker with leads in right atrium and right ventricle. 2. No acute findings.
[2019-08-19] VITALS (12 sets, daily range): BP systolic 108–145; BP diastolic 67–95; PULSE 61–91; RESP 15–23; TEMP 36.7–36.9; O2SAT 89–94
[2019-08-19] MEDS: enoxaparin 40 mg/0.4 mL Syringe SUBCUT (01:25)
[2019-08-19] MEDS: sodium chloride 0.9% 1,000 ML 75 ML IV (05:24)
--- NOTE | 2019-08-19 06:00 | ECG_ITS ---
Measurements Intervals [place] Rate: 83 P: 26 DE: 238 QRS: -21 QRSD: 117 T: 3 QT: 380 QTc: 448 SINUS RHYTHM WITH FIRST DEGREE AV BLOCK BORDERLINE LEFT AXIS DEVIATION INCOMPLETE RIGHT BUNDLE BRANCH BLOCK INFERIOR MYOCARDIAL INFARCTION, PROBABLY OLD MINIMAL VOLTAGE CRITERIA FOR LVH, CONSIDER NORMAL VARIANT Compared to ECG 08/18/2019 01:40:55 Incomplete right bundle-branch block now present Sinus tachycardia no longer present Myocardial infarct finding no longer present Electronically Signed On 08-20-2019 9:51:48 CDT by Lorna Velazquez M.D. [email or web address]
[2019-08-19] MEDS: amlodipine 10 mg Tablet PO (08:28)
--- NOTE | 2019-08-19 10:16 | P.DS_ITS ---
Discharge Providers Date of Admission: 08/18/19 00:09 Date of Discharge: August 19, 2019 Attending Provider at Admission: Gerald Arriaga MD Attending Provider at Discharge: Lorna Velazquez MD Primary Care Provider: Sami Stevens MD Diagnoses at Discharge Discharge Diagnosis (1) Recurrent syncope: Status: Acute Problem details: Recurrent syncope with prolonged pauses. Patient underwent successful placement of Medtronic dual-chamber permanent pacemaker placement. -Normal device function on interrogation. -Follow-up with Ms. Amy Noe in 1 week for site check and device interrogation. -Follow-up with Dr. Kothari/ in 8 weeks (2) Sinus node dysfunction: Status: Acute Other Information Additional DC diagnoses/information: Hypertension Obesity Obstructive sleep apnea History of intracranial hemorrhage Former smoker Reason for Visit Reason for Visit: Reason For Visit: syncope Hospital Course Hospital Course: Bolivar Lau is a 69 year old male with a history of hypertension, dyslipidemia who was admitted to the hospital with recurrent episodes of syncope. Patient apparently has been in his baseline state of health up until last night when while having the dinner, had a passing out spell. He was brought to the hospital by ambulance. On the way to the hospital, he had couple more episodes of passing out spells in the ambulance. He was found to have prolonged pauses of more than 10 seconds. He had a temporary pacemaker insertion at the time of admission. While in ICU, the temporary pacer was found to be nonfunctioning. Patient had another episode of prolonged pause of almost 40 seconds. He had a brief CPR. The temporary pacer wire was repositioned. Discharge Summary: Dr. Kothari was consulted and patient underwent Medtronic dual-chamber pacemaker placement successfully. Postprocedure chest x-ray did not show any pneumothorax thorax and normal atrial and ventricular lead position. This morning patient denies having any complaints. No events on telemetry. Demand pacing noted Physical Exam Const: COMMON NORMALS: no acute distress, patient oriented x3, healthy appearing, alert and well nourished HENMT: COMMON NORMALS: normocephalic, atraumatic and external ears normal HEAD & SCALP: normocephalic and atraumatic EXTERNAL EAR: Yes external ears normal Neck/C-Spine: COMMON NORMALS: no JVD Chest: COMMONS NORMALS: normal inspection of the chest (Left upper chest pacemaker in situ; dressing in place. No bruising or hematoma) Resp: COMMON NORMALS: normal respiratory effort and clear to auscultation bilaterally AUSCULTATION: clear to auscultation bilaterally, no crackles, no rales, no rhonchi and no wheezes Cardio: COMMON NORMALS: no JVD, regular rate, regular rhythm, S1 normal heart sound present and S2 normal heart sound present RATE: regular rate RHYTHM: regular rhythm HEART SOUNDS: S1 normal heart sound present, S2 normal heart sound present, no gallops, no murmurs and no rubs Extremity: COMMON NORMALS: normal to inspection and no clubbing, cyanosis or edema Neuro: COMMON NORMALS: patient oriented x3 SENSORIUM/ORIENTATION: Yes alert Discharge Data Data Completed and Pending: Completed Studies During Hospitalization Category Date Time Status WIND INSTRUMENT REPAIRER request for service Routin e Exams 08/17/19 21:54 Completed WIND INSTRUMENT REPAIRER request for service Routin e Exams 08/17/19 23:22 Completed WIND INSTRUMENT REPAIRER request for service Routin e Exams 08/18/19 11:23 Completed XR chest 1V sobeida ble [id number] Stat Exams 08/17/19 19:27 Completed XR chest 1V sobeida ble [id number] Urgent Exams 08/18/19 15:32 Completed CV echo complete* [id number] Routine Ultrasound 08/18/19 07:08 Completed Pending at discharge Category Date Time Status Urinalysis Routin e Lab 08/18/19 10:17 Ordered Labs from last 24 hours 08/18/19 08/18/19 10:35 10:35 WBC 10.8 H RBC 5.11 Hgb 15.3 Hct 45.8 MCV 89.6 MCH 29.9 MCHC 33.4 RDW 12.0 L Plt Count 174 MPV 10.5 H Neut % (Auto) 72.7 Lymph % (Auto) 19.7 [place] % (Auto) 7.0 Eos % (Auto) 0.0 Baso % (Auto) 0.3 Neut # (Auto) 7.9 H Lymph # (Auto) 2.1 [place] # (Auto) 0.8 Eos # (Auto) 0.0 Baso # (Auto) 0.0 Nucleated RBC % (a uto) 0 Nucleated RBCs # 0.0 PT 13.50 H INR 1.00 Imaging^: Echo: Radiologist's impression: TTE (18 Aug 2019) CONCLUSIONS Normal left ventricular size, systolic function and wall thickness, with no regional wall motion abnormalities. Grade II/IV diastolic dysfunction, moderately elevated filling pressures. Ejection fraction is approximately 60%. Mildly increased right atrial size. Mildly increased left atrial size. There are no prior echocardiogram studies to compare. Procedures Performed: Dual chamber PPM placement Vitals: Last Vital Signs Temp 98.8 F 08/17/19 23:00 Pulse 82 08/19/19 06:00 Resp 20 H 08/19/19 06:00 BP 145/95 08/19/19 06:00 Pulse Ox 94 08/19/19 06:00 Discharge Plan Discharge Patient Disposition: Home, Self-Care Condition: Stable Prescriptions: New Keflex 500 mg capsule 500 mg PO Q8H 5 Days Qty: 15 RF: 0 Percocet 5-325 mg tablet 1 tab PO Q8H PRN (Reason: pain (scale score 7-10)) Qty: 14 RF: 0 Continued amlodipine 10 mg tablet 10 mg PO DAILY RF: 0 lisinopril 10 mg tablet 10 mg PO DAILY RF: 0 ferrous sulfate See Rx Instructions .ROUTE .COMPLEX RF: 0 hydralazine See Rx Instructions .ROUTE .COMPLEX RF: 0 Discharge Orders: Discharge Order (Routine); Ordered 08/19/19 Ordered By: Lorna Velazquez Referrals: Sami Stevens MD [Primary Care Provider] - Tyler Kothari MD [Physician] - 6 Weeks Amy Noe FNP [Nurse Practitioner] - 7-10 days (Post pacemaker follow up for site check and PPM interrogation in 1 week.) Lorna Velazquez MD [Physician] - None Discharge Diet: Cardiac Discharge Activity: Limit activity as instructed Patient Instructions: Pacemaker (DC), Post Pacemaker - Taye Discharge Attestations Time Spent in Discharge Care*: greater than 30 min Specific Discharge Activities: Specific discharge activities: educating patient, documenting/other paperwork and evaluating patient/reviewing data Quality Metrics Clinical Quality Measures During this hospital stay, did patient experience: None Coding Level of Care Code Acute Trip Follower for Chg Fwd Exam Detailed Diagnoses Recurrent syncope R55 Sinus node dysfunction I49.5
== END 2019-08-19 13:30 | disposition home or self-care (01) | DRG 243 ==
LOC: ER 21:32 → CCL 21:50 → ICU 08-18 00:09
PROVIDERS: Emergency Medicine; Internal Medicine Cardiovascular Disease; Admitting Provider Internal Medicine Cardiovascular Disease; PCP Internal Medicine; Visit Provider Internal Medicine Cardiovascular Disease
PROC: 02HK3JZ Insertion of Pacemaker Lead into Right Ventricle, Percutaneous Approach (ICD-10-PCS; principal; 2019-08-17 22:00)
PROC: 0JH606Z Insertion of Pacemaker, Dual Chamber into Chest Subcutaneous Tissue and Fascia, Open Approach (ICD-10-PCS; principal; 2019-08-18 11:00)
DX: I45.5 Other specified heart block (principal); T82.120A Displacement of cardiac electrode, initial encounter; I97.120 Postprocedural cardiac arrest following cardiac surgery; R55 Syncope and collapse; I10 Essential (primary) hypertension; E66.9 Obesity, unspecified; Z68.36 Body mass index [BMI] 36.0-36.9, adult; G47.30 Sleep apnea, unspecified; Z87.891 Personal history of nicotine dependence; E73.9 Lactose intolerance, unspecified; E78.5 Hyperlipidemia, unspecified; Y71.1 Therapeutic (nonsurgical) and rehabilitative cardiovascular devices associated with adverse incidents
CPT/HCPCS: 12345; 33208; 33210; 33215; 36415; 71045; 80048; 80053; 83690; 83735; 84484; 85025; 85610; 93005; 93306; 94664; 96375; 97165; 99282; C1769; C1779; C1786; C1894; C1898; J0690; J1644; J1650; J2001; J2250; J2405; J3010; J7030; J7050; Q9967

== ENCOUNTER → 2021-07-18 08:46 | Outpatient (BNVA) | payer MEDICARE, OTHER, SELFPAY | PROVIDERS: PCP Internal Medicine Geriatric Medicine; Visit Provider Internal Medicine Cardiovascular Disease | DX: Z45.010 Encounter for checking and testing of cardiac pacemaker pulse generator [battery] (principal) | CPT/HCPCS: 93280 ==

== ENCOUNTER → 2021-11-07 08:55 | Outpatient (BNVA) | payer MEDICARE, OTHER, SELFPAY | PROVIDERS: PCP Internal Medicine Geriatric Medicine; Visit Provider Internal Medicine Cardiovascular Disease | DX: Z45.010 Encounter for checking and testing of cardiac pacemaker pulse generator [battery] (principal) | CPT/HCPCS: 93280 ==

== ENCOUNTER → 2021-12-05 12:08 | Outpatient (BNVA) | payer MEDICARE, OTHER, SELFPAY | PROVIDERS: PCP Internal Medicine Geriatric Medicine; Visit Provider Registered Nurse Neonatal Intensive Care | DX: Z20.822 Contact with and (suspected) exposure to COVID-19 (principal); K59.00 Constipation, unspecified | CPT/HCPCS: 87426 ==

== ENCOUNTER → 2022-02-20 08:34 | Outpatient (BNVA) | payer MEDICARE, OTHER, SELFPAY | PROVIDERS: PCP Internal Medicine Geriatric Medicine; Visit Provider Internal Medicine Cardiovascular Disease | DX: Z45.010 Encounter for checking and testing of cardiac pacemaker pulse generator [battery] (principal) | CPT/HCPCS: 93280 ==

== ENCOUNTER → 2022-04-07 10:00 | Outpatient (BNVA) | payer MEDICARE, OTHER, SELFPAY | PROVIDERS: PCP Internal Medicine Geriatric Medicine; Visit Provider Internal Medicine Cardiovascular Disease | DX: I10 Essential (primary) hypertension (principal); I61.9 Nontraumatic intracerebral hemorrhage, unspecified; Z95.0 Presence of cardiac pacemaker; G47.33 Obstructive sleep apnea (adult) (pediatric) | CPT/HCPCS: 99214 ==

== ENCOUNTER → 2023-04-07 09:37 | Outpatient (BNVA) | payer MEDICARE, OTHER, SELFPAY | PROVIDERS: PCP Internal Medicine Geriatric Medicine; Visit Provider Internal Medicine Cardiovascular Disease | DX: Z95.0 Presence of cardiac pacemaker (principal); I10 Essential (primary) hypertension; G47.33 Obstructive sleep apnea (adult) (pediatric); Z86.73 Personal history of transient ischemic attack (TIA), and cerebral infarction without residual deficits | CPT/HCPCS: 99214 ==

== ENCOUNTER → 2024-04-06 09:36 | Outpatient (BNVA) | payer MEDICARE, OTHER, SELFPAY | PROVIDERS: PCP Internal Medicine Geriatric Medicine; Visit Provider Internal Medicine Cardiovascular Disease | DX: I10 Essential (primary) hypertension (principal); Z95.0 Presence of cardiac pacemaker; G47.33 Obstructive sleep apnea (adult) (pediatric); Z86.73 Personal history of transient ischemic attack (TIA), and cerebral infarction without residual deficits; Z87.891 Personal history of nicotine dependence | CPT/HCPCS: 99214 ==